=== PATIENT | female | born 1975 | race Caucasian/White ===

== ENCOUNTER 2016-09-17 11:09 | Emergency (ER) | payer OTHER ==
--- NOTE | 2016-09-17 12:17 | RAD ---
Exam: Three-view left ankle COMPARISON: None INDICATION: Bilateral ankle pain since injury on 08/22/2016. Technique: AP, lateral and oblique views of both ankles were obtained. FINDINGS: No significant soft tissue swelling. Overall normal bone mineralization. Alignment is normal and ankle mortise is intact. No fracture or periosteal reaction is identified. IMPRESSION: Negative radiographic evaluation of both ankles.
== END 2016-09-17 13:11 | disposition home or self-care (01) ==
LOC: ED 11:09
DX: S93.401A Sprain of unspecified ligament of right ankle, initial encounter (principal); S93.402A Sprain of unspecified ligament of left ankle, initial encounter; W10.9XXA Fall (on) (from) unspecified stairs and steps, initial encounter; Y92.9 Unspecified place or not applicable